=== PATIENT | male | born 1990 | race Caucasian/White ===

== ENCOUNTER 2016-05-13 19:41 | Emergency (ER) | payer SELFPAY ==
--- NOTE | 2016-05-13 19:56 | EDPHY ---
H & P Time Seen by Provider: 05/13/16 19:56 HPI/ROS: CHIEF COMPLAINT: Right shoulder and chest pain HISTORY OF PRESENT ILLNESS: Patient presents with 3 days of right shoulder and chest pain which are severe today. He describes pain in the right pectoralis radiating to his shoulder is worse with a deep breath or with movement of the right arm. He says it is stabbing and is moderate to severe in nature. REVIEW OF SYSTEMS: Eye: no change in vision ENT: no sore throat Cardiac: no palpitations or syncope Pulmonary: no cough or SOB or hemoptysis Abdomen: no vomiting, diarrhea, abdominal pain Musculoskeletal: no back pain Skin: no rash Neuro: no headache Constitutional: no fever : no urinary symptoms A comprehensive 10 point review of systems is otherwise negative aside from elements mentioned in the history of present illness. PAST MEDICAL HISTORY: Leg fracture and surgery in December of 2014 after chainsaw injury. Social history: Patient is on work release currently. Denies IV drug abuse. No family history of DVT or PE or premature coronary disease. General Appearance: Alert and conversant, cooperative. Eyes: No scleral icterus. ENT, Mouth: Normal mucous membranes. Respiratory: Normal respiratory effort, breath sounds equal, lungs are clear to auscultation. Cardiovascular: Regular rate and rhythm. Gastrointestinal: Abdomen is soft and non tender. Neurological: Alert and oriented x3. Normally conversant. Face symmetric, normal movement and sensation in all extremities. Skin: Scab on left elbow without surrounding erythema crepitus or cellulitis or lymphangitis, from abrasion at work last week. Musculoskeletal: Patient does not have visible shoulder or swelling. He has tenderness to palpation over his right pectoral muscle. I can passively rotate his right shoulder without discomfort but when I abduct greater than 90 degrees he has pain. He has pain in his pectoralis muscle with resisted internal rotation of his right shoulder. His right elbow forearm wrist and hand are normal. Both hands have normal motor and sensory function normal radial pulse. There is no changes over the skin of the shoulder or the right chest wall. No lower extremity calf tenderness. Psychiatric: Not agitated. Emergency Department course/MDM: Patient received IV Dilaudid during previous admission for surgery. Sore 0.5 mg IV Dilaudid. Chest x-ray and right shoulder x-ray viewed independently by myself are both normal. CBC, chemistry, total CPK and D-dimer ordered. 2109: Results discussed. Negative CPK and negative D-dimer, normal white blood cell count. I think that pulmonary embolism or acute coronary syndrome are unlikely. It is much more likely to be muscular in his right shoulder. I think it is unlikely he has compartment syndrome or necrotizing fasciitis or cellulitis or abscess or septic joint. I think it is unlikely that he has rhabdomyolysis. Smoking Status: Former smoker Constitutional: Initial Vital Signs Temperature (C) 36.4 C 05/13/16 19:44 Heart Rate 81 05/13/16 19:44 Respiratory Rate 24 H 05/13/16 19:44 Blood Pressure 128/82 H 05/13/16 19:44 O2 Sat (%) 96 05/13/16 19:44 O2 Delivery Mode Room Air Allergies/Adverse Reactions: codeine [Codeine] Allergy (Severe, Verified 12/29/14 21:29) Anaphylaxis acetaminophen [From Vicodin] Allergy (Verified 12/29/14 21:29) Hives hydrocodone bitartrate [From Vicodin] Allergy (Verified 12/29/14 21:29) Anaphylaxis Penicillins Allergy (Verified 01/16/15 10:31) Home Medications: Medication Instructions Recorded NK [No Known Home Meds] 12/29/14 Medical Decision Making - Data Points Laboratory Results: Laboratory Results 05/13/16 20:40 05/13/16 20:40 05/13/16 20:40 WBC 6.54 10^3/uL (3.80-9.50) RBC 5.38 10^6/uL (4.40-6.38) Hgb 15.7 g/dL (13.7-17.5) Hct 44.9 % (40.0-51.0) MCV 83.5 fL (81.5-99.8) MCH 29.2 pg (27.9-34.1) MCHC 35.0 g/dL (32.4-36.7) RDW 12.1 % (11.5-15.2) Plt Count 216 10^3/uL (150-400) MPV 10.0 fL (8.7-11.7) Neut % (Auto) 70.2 % (39.3-74.2) Lymph % (Auto) 18.5 % (15.0-45.0) [place] % (Auto) 9.0 % (4.5-13.0) Eos % (Auto) 1.1 % (0.6-7.6) Baso % (Auto) 0.6 % (0.3-1.7) Nucleat RBC Rel Count 0.0 % (0.0-0.2) Absolute Neuts (auto) 4.59 10^3/uL (1.70-6.50) Absolute Lymphs (auto) 1.21 10^3/uL (1.00-3.00) Absolute Monos (auto) 0.59 10^3/uL (0.30-0.80) Absolute Eos (auto) 0.07 10^3/uL (0.03-0.40) Absolute Basos (auto) 0.04 10^3/uL (0.02-0.10) Absolute Nucleated RBC 0.00 10^3/uL (0-0.01) Immature Gran % 0.6 % (0.0-1.1) Immature Gran # 0.04 10^3/uL (0.00-0.10) D-Dimer 0.28 ug/mLFEU (0.00-0.50) Sodium 138 mEq/L (134-144) Potassium 4.2 mEq/L (3.5-5.2) Chloride 105 mEq/L (97-110) Carbon Dioxide 24 mEq/l (22-31) Anion Gap 9 mEq/L (8-16) BUN 20 mg/dL (7-23) Creatinine 0.8 mg/dL (0.7-1.3) Estimated GFR > 60 Glucose 91 mg/dL (70-100) Calcium 9.2 mg/dL (8.5-10.4) Creatine Kinase 74 IU/L (0-224) Medications Given: Discontinued Medications Hydromorphone HCl (Dilaudid) 0.5 mg IVP EDNOW ONE Stop: 05/13/16 20:26 Last Admin: 05/13/16 20:50 Dose: 0.5 mg Departure - Departure Disposition: Home, Routine, Self-Care Clinical Impression: Shoulder pain, right Condition: Good Instructions: Shoulder Pain (ED) Additional Instructions: Likely muscular; followup with ortho next week if still symptomatic. Adult Pain & Fever Control: We recommend Acetaminophen (Tylenol) and Ibuprofen (Motrin,Advil) for pain and fever control. When fever is high or pain severe, both drugs can be used at the same time, but at different intervals. Please note the time differences. Your dose is: Acetaminophen 650 mg every 4 to 6 hours Ibuprofen 600mg every hours with food Referrals: Min Chen MD [Medical Doctor] - As per Instructions
[2016-05-13 20:02] VITALS: TEMP 98.4
[2016-05-13] MEDS ORDERED: HYDROmorphONE/DILAUDID 1 MG/ML SYR IVP ONE (20:25)
--- NOTE | 2016-05-13 20:34 | DX ---
Chest, Two Views at 1947 hours History: Chest pain. Comparison: None. Findings: Cardiac silhouette is within normal range. No pneumonia, congestive heart failure, pleural effusion, or pneumothorax. Impression: No acute pulmonary disease.
--- NOTE | 2016-05-13 20:46 | DX ---
Right Shoulder, Three Views History: Pain with abduction. Comparison: None. Findings: No acute fracture or dislocation identified. No significant degenerative changes of the r ight glenohumeral joint. Right acromioclavicular joint demonstrates no widening, displacement, or si gnificant degenerative changes. Impressions 1. No definite acute fracture. 2. No degenerative changes of the right shoulder.
[2016-05-13 20:48] LABS: % IMMATURE GRANULYOCYTES 0.6 % (0.0-1.1); ABSOLUTE IMMATURE GRANULOCYTES 0.04 10^3/uL (0.00-0.10); ADD DIFF? NO; ADD MORPH? NO; ADD SCAN? NO; ATYPICAL LYMPHOCYTE FLAG 10 (0-99); FRAGMENT RBC FLAG 0 (0-99); HEMATOCRIT 44.9 % (40.0-51.0); HEMOGLOBIN 15.7 g/dL (13.7-17.5); LEFT SHIFT FLG 0 (0-99); LIPEMIA HEMOLYSIS FLAG 90 (0-99); MEAN CELL HEMOGLOBIN 29.2 pg (27.9-34.1); MEAN CELL VOLUME 83.5 fL (81.5-99.8); PLATELET CLUMPS FLAG 20 (0-99); PLATELET COUNT 216 10^3/uL (150-400); RED BLOOD CELL COUNT 5.38 10^6/uL (4.40-6.38); RED CELL DISTRIBUTION WIDTH 12.1 % (11.5-15.2)
[2016-05-13 21:07] LABS: ANION GAP 9 mEq/L (8-16); CALCIUM 9.2 mg/dL (8.5-10.4); CARBON DIOXIDE 24 mEq/l (22-31); CHLORIDE 105 mEq/L (97-110); CREATININE 0.8 mg/dL (0.7-1.3); GLOMERULAR FILTRATION RATE > 60; GLUCOSE 91 mg/dL (70-100); POTASSIUM 4.2 mEq/L (3.5-5.2); SODIUM 138 mEq/L (134-144)
[2016-05-13 21:24] VITALS: BP 151/99; PULSE 74; RESP 16; O2SAT 98
== END 2016-05-13 21:24 | disposition home or self-care (01) ==
DX: M25.511 Pain in right shoulder (principal); Z87.891 Personal history of nicotine dependence
CPT/HCPCS: 96374; J1170